=== PATIENT | male | born 1950 | race Caucasian/White ===

== ENCOUNTER 2023-02-19 07:41 | Emergency (ER) | payer OTHER ==
[~2023-02-19] VITALS: Ht 188 cm; Wt 113.4 kg
[2023-02-19 07:41] VITALS: BP_SYST 134; PULSE 106; RESP 19; TEMP 98.2; O2SAT 94
== END 2023-02-19 08:35 | disposition home or self-care (01) ==
LOC: SED 07:41
DX: Z04.3 Encounter for examination and observation following other accident (principal); Z88.0 Allergy status to penicillin; Z88.6 Allergy status to analgesic agent; Z79.899 Other long term (current) drug therapy
CPT/HCPCS: 99283